=== PATIENT | male | born 1955 | race Caucasian/White ===

== ENCOUNTER 2016-10-04 07:02 | Observation (INO) | payer OTHER ==
--- NOTE | 2016-10-04 07:49 | ERPHSYRPT ---
- History of Present Illness Time Seen by Provider: 10/04/16 07:30 Source: patient, old records Exam Limitations: no limitations Patient Subjective Stated Complaint: sob Triage Nursing Assessment: pt states increased sob since midnight last night. c/ o dry nasal passages. denies cough, nasal drainage or fever. admitted recently for lung compromised (asthma, bronchitis, pneumonia) lungs clear. Timing/Duration: yesterday Activities at Onset: none Possible Cause: frequent episodes Modifying Factors: Improves With: activity Associated Symptoms: constant, edema, wheezing, leg swelling Allergies/Adverse Reactions: Tetracyclines Allergy (Intermediate, Verified 10/04/16 07:09) erythromycin base Allergy (Mild, Verified 10/04/16 07:09) Home Medications: Atenolol 50 mg [Tenormin 50 mg] 50 mg PO DAILY 10/30/15 [History] Atorvastatin Calcium [Lipitor] 40 mg PO HS 10/30/15 [History] Insulin Glargine,Hum.rec.anlog [Akbar Tobar] 150 unit SQ 1700 10/30/15 [ History] Isosorbide Mononitrate 60 mg [Imdur 60MG] 60 mg PO DAILY 10/30/15 [History] Warfarin Sodium 5 mg [Coumadin 5 MG] 11 mg PO EVENING MEAL 10/30/15 [ History] Amlodipine Besylate 10 mg [Norvasc 10 MG] 10 mg PO DAILY 09/04/16 [History] Fexofenadine HCl 180 mg PO DAILY 09/04/16 [History] Furosemide 40 mg [Lasix 40 MG] 40 mg PO DAILY 09/04/16 [History] Glyburide/Metformin HCl [Glyburide-Metformin 5-500 mg] 2 each PO BID 09/04/16 [ History] HydrALAzine HCL 25 MG TAB [Apresoline 25 MG TABLET] 25 mg PO DAILY [History] Potassium Chloride 10 Meq Tab* [Klor Con 10 MEQ] 10 meq PO DAILY 09/04/16 [ History] Ramipril [Altace] 20 mg PO DAILY 09/04/16 [History] Multivit-Min/FA/Lycopene/Lut [Centrum Silver Ultra Men's Tab] 1 each PO DAILY [History] Omeprazole 20 MG [Prilosec 20 mg] 20 mg PO DAILY 10/04/16 [History] Hx Tetanus, Diphtheria Vaccination/Date Given: Yes Hx Influenza Vaccination/Date Given: Yes Hx Pneumococcal Vaccination/Date Given: Yes Immunizations Up to Date: Yes - Review of Systems Constitutional: Weakness Eyes: No Symptoms Ears, Nose, & Throat: No Symptoms Respiratory: Dyspnea, Dyspnea on Exertion (JONES), Wheezing Cardiac: No Symptoms Abdominal/Gastrointestinal: No Symptoms Musculoskeletal: No Symptoms Skin: No Symptoms Neurological: No Symptoms Psychological: No Symptoms Endocrine: No Symptoms Hematologic/Lymphatic: No Symptoms Immunological/Allergic: No Symptoms - Past Medical History Pertinent Past Medical History: Yes Neurological History: Peripheral Neuropathy ENT History: Cataracts Cardiac History: Congestive Heart Failure, Hypertension Respiratory History: Bronchitis, CHF, Pneumonia, Pulmonary Embolism Endocrine Medical History: No Pertinent History, Diabetes Type II Musculoskeletal History: Arthritis GI Medical History: Other History: No Pertinent History Psycho-Social History: No Pertinent History Male Reproductive Disorders: No Pertinent History Other Medical History: reflux - Past Surgical History Past Surgical History: Yes Neuro Surgical History: No Pertinent History Cardiac: Cardiac Catheterization Respiratory: No Pertinent History Gastrointestinal: No Pertinent History Musculoskeletal: No Pertinent History Male Surgical History: No Pertinent History Other Surgical History: DENTAL - Social History Smoking Status: Former smoker How long have you smoked: 1 year Exposure to second hand smoke: No Drug Use: none Patient Lives Alone: Yes Significant Family History: heart disease, hypertension, kidney/renal disease - Nursing Vital Signs Nursing Vital Signs: Initial Vital Signs Temperature 98.5 F Temperature Source Oral Pulse Rate 91 Respiratory Rate 20 Blood Pressure 151/76 Pain Intensity 0 - Physical Exam General Appearance: moderate distress Eye Exam: PERRL/EOMI, eyes nml inspection Ears, Nose, Throat Exam: hearing grossly normal, normal ENT inspection Neck Exam: normal inspection Respiratory Exam: accessory muscle use, wheezing (dry crackles posterior miranda) Cardiovascular/Chest Exam: normal heart sounds, regular rate/rhythm, edema (4+ pretibial pitting to thighs) Abdominal/Gastrointestinal Exam: soft, normal bowel sounds Neurologic Exam: alert, oriented x 3, cooperative, normal mood/affect Skin Exam: normal color, warm, dry Lymphatic Exam: adenopathy SpO2 Interpretation: hypoxic, ABG ordered, O2 applied SpO2: 93 Oxygen Delivery: Room Air - Course Nursing assessment & vital signs reviewed: Yes EKG Interpreted by Me: RATE (97), Sinus Rhythm, NORMAL AXIS, NORMAL INTERVALS, NORMAL QRS, Non-specific ST Changes (unchanged from ECG of 09.04.2016) - Radiology Exams Chest X-ray Interpretation: Interpreted by me, Other (perihilar prominence C/W bronchitis. Prior RML inf cleared since 09.04.2016) Ordered Tests: Active Orders 24 hr Category Date Time Status EKG-ER Only STAT Care 10/04/16 07:20 Active Oxygen-ED Only NASAL CANNULA 2 lpm Care 10/04/16 07:20 Active Pulse Oximetry (ED) STAT Care 10/04/16 07:20 Active CHEST 2 VIEWS (PA AND LAT) Stat Exams 10/04/16 07:18 Taken ARTERIAL BLOOD GASES Urgent Lab 10/04/16 07:56 Completed CBC W DIFF Stat Lab 10/04/16 07:45 Completed CMP Stat Lab 10/04/16 07:45 Completed NT PRO BNP Stat Lab 10/04/16 07:45 Completed PROTIME WITH INR Stat Lab 10/04/16 07:45 Completed Respiratory Nebulizer STAT RT 10/04/16 07:58 Completed Medication Summary Discontinued Medications Generic Name Dose Route Start Last Admin Trade Name Freq PRN Reason Stop Dose Admin Albuterol/Ipratropium 3 ml 10/04/16 07:56 10/04/16 08:10 Duoneb 0.5-3 Mg/3 Ml Neb IH 10/04/16 07:57 3 ml STAT ONE Administration Albuterol/Ipratropium Confirm 10/04/16 08:00 Duoneb 0.5-3 Mg/3 Ml Neb Administered 10/04/16 08:01 Dose 3 ml IH .STK-MED ONE Furosemide 80 mg 10/04/16 08:15 10/04/16 08:33 Lasix 40 Mg/4 Ml IV 10/04/16 08:16 80 mg STAT ONE Administration Furosemide Confirm 10/04/16 08:19 Lasix 100 Mg/10 Ml Administered 10/04/16 08:20 Dose 100 mg .ROUTE .STK-MED ONE Methylprednisolone Sodium Succinate 125 mg 10/04/16 08:40 10/04/16 08:47 Solu-Medrol 125 Mg IV 10/04/16 08:41 125 mg STAT ONE Administration Methylprednisolone Sodium Succinate Confirm 10/04/16 08:47 Solu-Medrol 125 Mg Administered 10/04/16 08:48 Dose 125 mg .ROUTE .STK-MED ONE Lab/Rad Data: Laboratory Result Diagrams 10/04/16 07:45 10/04/16 07:45 Laboratory Results 10/04/16 10/04/16 10/04/16 Range/Units 07:56 07:45 07:45 WBC (4.0-10.5) K/mm3 RBC (4.1-5.6) M/mm3 Hgb (12.5-18.0) gm/dl Hct (42-50) % MCV (78-100) fl MCH (26-32) pg MCHC (32-36) g/dl RDW (11.5-14.0) % Plt Count (150-450) K/mm3 MPV (6-9.5) fl Gran % (36.0-66.0) % Lymphocytes % (24.0-44.0) % Monocytes % (0.0-12.0) % Eosinophils % (0.00-5.0) % Basophils % (0.0-0.4) % Basophils # (0-0.4) INR 2.35 (0.8-3.0) Puncture Site RIGHT BRACHIAL pCO2 42 (35-45) mmHg pO2 90 (75-100) mmHg Base Excess 1.0 (-2.0-2.0) O2 Saturation 96.3 (94-100) g/dF ABG pH 7.40 (7.35-7.45) ABG HCO3 26.0 (22-28) ABG O2 Sat (Measured) 98.0 (95-100) % Sim Test NOT APPLICABLE A-a Gradient 57 a/A Ratio 0.61 Hemoglobin 9.0 Carboxyhemoglobin 1.3 (0.0-6.9) % THgb Methemoglobin 0.4 L (1.4-1.5) % Temperature 37.0 C POC O2 Flow Rate 28 % Sodium 145 (136-145) mEq/L Potassium 5.3 H 5.4 H (3.5-5.1) mEq/L Chloride 112 H (98-107) mEq/L Carbon Dioxide 26.8 (21-32) mEq/L Anion Gap 11.5 (5-15) MEQ/L BUN 36 H (9-20) mg/dL Creatinine 2.36 H (0.55-1.30) mg/dl Estimated GFR 30 ML/MIN Glucose 163 H (70-110) MG/DL Calcium 8.0 L (8.5-10.1) mg/dL Total Bilirubin 0.2 (0.2-1.0) mg/dL AST 25 (15-37) U/L ALT 20 (12-78) U/L Alkaline Phosphatase 55 (46-116) U/L NT-Pro-B Natriuret Pep 1288 H (0-125) pg/ml Serum Total Protein 5.6 L (6.4-8.2) gm/dL Albumin 2.5 L (3.4-5.0) g/dL 10/04/16 Range/Units 07:45 WBC 7.4 (4.0-10.5) K/mm3 RBC 3.19 L (4.1-5.6) M/mm3 Hgb 9.2 L (12.5-18.0) gm/dl Hct 28.9 L (42-50) % MCV 90.6 (78-100) fl MCH 28.8 (26-32) pg MCHC 31.8 L (32-36) g/dl RDW 13.8 (11.5-14.0) % Plt Count 210 (150-450) K/mm3 MPV 11.2 H (6-9.5) fl Gran % 72.3 H (36.0-66.0) % Lymphocytes % 13.1 L (24.0-44.0) % Monocytes % 10.8 (0.0-12.0) % Eosinophils % 3.7 (0.00-5.0) % Basophils % 0.1 (0.0-0.4) % Basophils # 0.01 (0-0.4) INR (0.8-3.0) Puncture Site pCO2 (35-45) mmHg pO2 (75-100) mmHg Base Excess (-2.0-2.0) O2 Saturation (94-100) g/dF ABG pH (7.35-7.45) ABG HCO3 (22-28) ABG O2 Sat (Measured) (95-100) % Sim Test A-a Gradient a/A Ratio Hemoglobin Carboxyhemoglobin (0.0-6.9) % THgb Methemoglobin (1.4-1.5) % Temperature C POC O2 Flow Rate % Sodium (136-145) mEq/L Potassium (3.5-5.1) mEq/L Chloride (98-107) mEq/L Carbon Dioxide (21-32) mEq/L Anion Gap (5-15) MEQ/L BUN (9-20) mg/dL Creatinine (0.55-1.30) mg/dl Estimated GFR ML/MIN Glucose (70-110) MG/DL Calcium (8.5-10.1) mg/dL Total Bilirubin (0.2-1.0) mg/dL AST (15-37) U/L ALT (12-78) U/L Alkaline Phosphatase (46-116) U/L NT-Pro-B Natriuret Pep (0-125) pg/ml Serum Total Protein (6.4-8.2) gm/dL Albumin (3.4-5.0) g/dL - Progress Progress: improved Air Movement: good Blood Culture(s) Obtained: No Antibiotics given: No Discussed with : Nadya Will see patient in: hospital (observation) Counseled pt/family regarding: lab results, diagnosis, rad results - Departure Time of Disposition: 09:00 Departure Disposition: Observation Clinical Impression: Bronchitis CHF (congestive heart failure) Qualifiers: Congestive heart failure type: unspecified congestive heart failure type Congestive heart failure chronicity: acute on chronic Qualified Code(s): I50.9 - Heart failure, unspecified Condition: Stable Critical Care Time: Yes Critical Care Time(excluding separately billable procedures): 30-74 minutes Referrals: MARSHALL RODRIGUES [Primary Care Provider] - Instructions: Heart Failure
[2016-10-04 07:55] LABS: BASOPHIL % 0.1 % (0.0-0.4); Eosinophil % 3.7 % (0.00-5.0); Granulocytes % 72.3 % (36.0-66.0); Lymphocytes % 13.1 % (24.0-44.0); Mean Cell Volume 90.6 fl (78-100); Mean Corpuscular Hemoglobin 28.8 pg (26-32); Mean Platelet Volume 11.2 fl (6-9.5); Monocytes % 10.8 % (0.0-12.0); Platelet Count 210 K/mm3 (150-450); Red Blood Count 3.19 M/mm3 (4.1-5.6); Red Cell Distribution Width 13.8 % (11.5-14.0); White Blood Count 7.4 K/mm3 (4.0-10.5)
[2016-10-04] MEDS ORDERED: DUONEB 0.5-3 MG/3 ml Neb IH ONE ×2 (07:56→08:00)
[2016-10-04 08:06] LABS: INR 2.35 (0.8-3.0); PROTIME 25.7 SECONDS (8.83-12.87)
[2016-10-04] MEDS ORDERED: Lasix 40 MG/4 ML IV ONE (08:15)
[2016-10-04 08:16] LABS: A-aADO2 57; ARTERIAL BLOOD GAS FIO2 28 %; ARTERIAL BLOOD GAS PO2 90 mmHg (75-100)
[2016-10-04] MEDS ORDERED: LASIX ONE (08:19)
[2016-10-04 08:21] LABS: ALBUMIN 2.5 g/dL (3.4-5.0); ANION GAP 11.5 MEQ/L (5-15); BILIRUBIN,TOTAL 0.2 mg/dL (0.2-1.0); Carbon Dioxide 26.8 mEq/L (21-32); Potassium 5.4 mEq/L (3.5-5.1); Total Protein 5.6 gm/dL (6.4-8.2)
[2016-10-04] MEDS ORDERED: solu-MEDROL 125 MG IV ONE (08:40)
[2016-10-04] MEDS ORDERED: solu-MEDROL 125 MG ONE (08:47)
[2016-10-04 09:24] LABS: Collection Type VOID; Ph 5.5 (5-6)
[2016-10-04 09:25] LABS: ADD URINE CULTURE? NO (NO); Bacteria RARE /HPF (NEGATIVE); COMPLETE URINE MICROSCOPIC? YES; Epithelial Cells RARE /HPF (FEW); WBC 0-2 /HPF (0-5)
--- NOTE | 2016-10-04 09:39 | XRAY ---
Indication: Short of breath. Comparison: September 04, 2016 PA/lateral chest again demonstrates chronic lung markings. No focal infiltrate, consolidation, or large effusion. Heart is not enlarged. Vascularity normal. Bony thorax intact. Impression: Nonacute chest.
[2016-10-04] MEDS ORDERED: Zofran 4 MG/2 ML VIAL IV PRN (09:56)
[2016-10-04] MEDS ORDERED: TYLENOL 325 MG PO PRN (09:56)
[2016-10-04] MEDS ORDERED: NovoLOG Insulin SQ PRN (09:56)
[2016-10-04] MEDS ORDERED: MORPHINE SULFATE 2 MG INJ IV PRN (09:56)
[2016-10-04] MEDS ORDERED: PROTONIX 40 MG IV IV SCH (10:00)
[2016-10-04] MEDS ORDERED: DUONEB 0.5-3 MG/3 ml Neb IH SCH (11:00)
[2016-10-04] MEDS: Glucophage 500 MG PO SCH ×2 (12:22→16:11)
[2016-10-04] MEDS: CLARITIN 10 MG PO SCH (12:22)
[2016-10-04] MEDS: Apresoline 25 MG TABLET PO SCH ×3 (12:22→23:06)
[2016-10-04] MEDS: NORVASC 5 MG PO SCH (12:23)
[2016-10-04] MEDS: Imdur 60MG PO SCH (12:23)
[2016-10-04] MEDS: Protonix 40MG Tablet PO SCH (12:23)
[2016-10-04] MEDS: Klor Con 10 MEQ PO SCH (12:23)
[2016-10-04] MEDS: Micronase 5 MG PO SCH ×2 (12:23→16:11)
[2016-10-04] MEDS: TENORMIN 50 MG PO SCH (12:24)
[2016-10-04] MEDS: THERAGRAN MULTIVITAMIN PO SCH (12:25)
[2016-10-04] MEDS: Lasix 40 MG/4 ML IV SCH ×2 (12:31→16:11)
[2016-10-04] MEDS: PROVENTIL 2.5 MG/3 ML NEB IH SCH ×2 (14:15→18:58)
[2016-10-04] MEDS ORDERED: PROVENTIL 2.5 MG/3 ML NEB IH ONE (14:22)
[2016-10-04] MEDS ORDERED: Lantus Insulin SQ SCH (17:00)
[2016-10-04] MEDS ORDERED: INSULIN GLARGINE HUM REC ANLOG 150 UNIT SQ SCH (17:00)
[2016-10-04] MEDS ORDERED: Coumadin 1 MG PO SCH (18:00)
[2016-10-04] MEDS ORDERED: Coumadin 10 MG PO SCH (18:00)
[2016-10-04] MEDS ORDERED: Lasix 20 MG/2 ML IV SCH (20:30)
[2016-10-04] MEDS ORDERED: LIPITOR 40MG PO SCH (22:00)
[2016-10-04] MEDS ORDERED: ZOCOR 20MG PO SCH (22:00)
[2016-10-04] MEDS ORDERED: GLYBURIDE PO SCH (22:00)
[2016-10-04] MEDS ORDERED: METFORMIN HCL PO SCH (22:00)
[2016-10-05] MEDS: PROVENTIL 2.5 MG/3 ML NEB IH SCH ×3 (01:19→13:00)
[2016-10-05 06:20] LABS: ANION GAP 10.3 MEQ/L (5-15); Carbon Dioxide 28.3 mEq/L (21-32); Potassium 5.7 mEq/L (3.5-5.1)
[2016-10-05] MEDS ORDERED: Spiriva 18 Mcg/Cap Inhaler IH ONE (06:48)
[2016-10-05] MEDS: Micronase 5 MG PO SCH (07:57)
[2016-10-05] MEDS: Glucophage 500 MG PO SCH (07:57)
--- NOTE | 2016-10-05 08:23 | PCM.DCORD ---
- Discharge Discharge Date: 10/05/16 Disposition: Home, Self-Care Condition: Stable Medications: Home Medications Atenolol 50 mg [Tenormin 50 mg] 50 mg PO DAILY 10/30/15 [Last Taken ] Atorvastatin Calcium [Lipitor] 40 mg PO HS 10/30/15 [Last Taken 10/03/16] Insulin Glargine,Hum.rec.anlog [Alsean Verdinbarrera] 150 unit SQ 1700 10/30/15 [ Last Taken 10/03/16] Isosorbide Mononitrate 60 mg [Imdur 60MG] 60 mg PO DAILY 10/30/15 [Last Taken 10/04/16] Warfarin Sodium 5 mg [Coumadin 5 MG] 11 mg PO EVENING MEAL 10/30/15 [Last Taken 10/03/16] Amlodipine Besylate 10 mg [Norvasc 10 MG] 10 mg PO DAILY 09/04/16 [Last Taken ] Fexofenadine HCl 180 mg PO DAILY 09/04/16 [Last Taken 10/04/16] Furosemide 40 mg [Lasix 40 MG] 40 mg PO DAILY 09/04/16 [Last Taken ] Glyburide/Metformin HCl [Glyburide-Metformin 5-500 mg] 2 each PO BID 09/04/16 [ Last Taken 10/04/16] HydrALAzine HCL 25 MG TAB [Apresoline 25 MG TABLET] 25 mg PO TID 09/04/16 [Last Taken 10/04/16] Potassium Chloride 10 Meq Tab* [Klor Con 10 MEQ] 10 meq PO DAILY 09/04/16 [ Last Taken 10/04/16] Ramipril [Altace] 20 mg PO DAILY 09/04/16 [Last Taken 10/04/16] Multivit-Min/FA/Lycopene/Lut [Centrum Silver Ultra Men's Tab] 1 each PO DAILY [Last Taken 10/04/16] Omeprazole 20 MG [Prilosec 20 mg] 20 mg PO DAILY 10/04/16 [Last Taken 10/04/16] Tiotropium Wells Inhaler [Spiriva 18 Mcg/Cap Inhaler] 1 inh PO DAILY 10/20 [Last Taken Unknown] Active Inpatient Medications Acetaminophen (Tylenol 325 Mg) 650 mg PO Q4H PRN PRN PRN Reason: PAIN AND/OR FEVER Stop: 11/03/16 09:55 Albuterol Sulfate (Proventil 2.5 Mg/3 Ml Neb) 2.5 mg IH Q6HRT [facility] Stop: 11/03/16 18:59 Last Admin: 10/05/16 06:46 Dose: 2.5 mg Amlodipine Besylate (Norvasc 5 Mg) 10 mg PO DAILY [facility] Stop: 11/03/16 10:59 Last Admin: 10/04/16 12:23 Dose: Not Given Atenolol (Tenormin 50 Mg) 50 mg PO DAILY [facility] Stop: 11/03/16 10:59 Last Admin: 10/04/16 12:24 Dose: Not Given Furosemide (Lasix 40 Mg/4 Ml) 40 mg IV BID DIURETIC [facility] Stop: 11/03/16 09:59 Last Admin: 10/04/16 16:11 Dose: 40 mg Glyburide (Micronase 5 Mg) 10 mg PO BIDWM [facility] Stop: 11/03/16 10:59 Last Admin: 10/05/16 07:57 Dose: 10 mg Hydralazine HCl (Apresoline 25 Mg Tablet) 25 mg PO TID [facility] Stop: 11/03/16 10:59 Last Admin: 10/04/16 23:06 Dose: 25 mg Insulin Aspart (Novolog Insulin) 0 unit SQ UD PRN PRN Reason: HYPERGLYCEMIA Stop: 11/03/16 09:55 Last Admin: 10/04/16 23:06 Dose: 7 unit Insulin Glargine (Lantus Insulin) 120 unit SQ 1700 [facility] Stop: 11/03/16 16:59 Last Admin: 10/04/16 16:23 Dose: 120 unit Isosorbide Mononitrate (Imdur 60mg) 60 mg PO DAILY [facility] Stop: 11/03/16 10:59 Last Admin: 10/04/16 12:23 Dose: Not Given Loratadine (Claritin 10 Mg) 10 mg PO DAILY [facility] Stop: 11/03/16 10:59 Last Admin: 10/04/16 12:22 Dose: Not Given Metformin HCl (Glucophage 500 Mg) 1,000 mg PO BIDWM [facility] Stop: 11/03/16 10:59 Last Admin: 10/05/16 07:57 Dose: 1,000 mg Morphine Sulfate (Morphine Sulfate 2 Mg Inj) 2 mg IV Q4H PRN PRN PRN Reason: PAIN Stop: 10/09/16 09:55 Multivitamins (Theragran Multivitamin) 1 tab PO DAILY [facility] Stop: 11/03/16 10:59 Last Admin: 10/04/16 12:25 Dose: 1 tab Ondansetron HCl (Zofran 4 Mg/2 Ml Vial) 4 mg IV Q6H PRN PRN PRN Reason: NAUSEA/VOMITING Stop: 11/03/16 09:55 Pantoprazole Sodium (Protonix 40mg Tablet) 40 mg PO DAILY [facility] Stop: 11/03/16 10:59 Last Admin: 10/04/16 12:23 Dose: Not Given Potassium Chloride (Klor Con 10 Meq) 10 meq PO DAILY [facility] Stop: 11/03/16 10:59 Last Admin: 10/04/16 12:23 Dose: Not Given Simvastatin (Zocor 20mg) 40 mg PO HS [facility] Stop: 11/03/16 21:59 Last Admin: 10/04/16 23:06 Dose: 40 mg Tiotropium Wells (Spiriva 18 Mcg/Cap Inhaler) 1 ea IH DAILY [facility] Stop: 11/04/16 09:59 Last Admin: 10/05/16 06:51 Dose: 1 ea Warfarin Sodium (Coumadin 10 Mg) 10 mg PO COU [facility] Stop: 11/03/16 17:59 Last Admin: 10/04/16 16:22 Dose: 10 mg Warfarin Sodium (Coumadin 1 Mg) 1 mg PO COU [facility] Stop: 11/03/16 17:59 Last Admin: 10/04/16 16:23 Dose: 1 mg Instructions: Heart Failure Additional Instructions: hold potassium until Dr. Covington restarts it Follow up with: MARSHALL COVINGTON [Primary Care Provider] - Forms: Patient Portal Information
--- NOTE | 2016-10-05 08:38 | HP ---
CHIEF COMPLAINT: Shortness of breath. HISTORY OF PRESENT ILLNESS: The patient is a 61 y/o WM patient who reports that he had been up in the evening last night and overnight due to dropping of his blood sugars down to 53 and he noticed that he was increasingly short of breath. He presented himself to the Emergency Room and was subsequently admitted to the hospital with the diagnosis of congestive heart failure. PAST MEDICAL HISTORY: The patient's past medical history is significant for congestive heart failure, hypertension, bronchitis, pneumonia, pulmonary embolism, type 2 diabetes mellitus. HOME MEDICATIONS: Amlodipine 10 mg a day, atenolol 50 mg a day, Lipitor 40 mg a day, fexofenadine 180 mg a day, Lasix 40 mg a day, glyburide/metformin 5/500 bid 2 tablets at a time, hydralazine 25 mg tid, insulin, isosorbide 60 mg daily, omeprazole 20 mg a day, potassium 10 mEq a day, warfarin 5 mg a day. ALLERGIES: THE PATIENT REPORTS ALLERGIES TO ERYTHROMYCIN AND TETRACYCLINE. PHYSICAL EXAMINATION: Reveals an obese WM patient currently in no obvious distress. He has temperature of 98.5 oral, pulse 81, respiratory rate 20, BP 151/76, O2 saturation 93% on room air. HEENT: Normocephalic and atraumatic. Pupils equal, round, and reactive to light. Extraocular movements intact. Oropharynx was pink and moist. NECK: Supple without lymphadenopathy, thyromegaly, or JVD. CHEST: Clear to auscultation with good air movement bilaterally. HEART: Regular rate and rhythm without murmurs, rubs, or gallops. ABDOMEN: Soft, nontender, nondistended without hepatosplenomegaly or masses. EXTREMITIES: Without cyanosis, clubbing, or edema. NEURO: The patient is alert and oriented X 3. LABORATORY STUDIES: Showed a UA with greater than 300 on the protein, but was otherwise normal. He had an arterial blood gas with pH of 7.40, PCO2 42, PO2 90. He had a nonfasting sugar at 163, BUN 36, creatinine 2.36. Potassium was slightly high at 5.4. Liver enzymes were normal. NT Pro BNP was elevated at 1288. INR was therapeutic at 2.35. WBC was 7400, Hgb 9.2, and platelet count is 210,000. ASSESSMENT: 1. THE PATIENT WITH CONGESTIVE HEART FAILURE. He has been given IV Lasix in the Emergency Room. He is improving at the present time. We will check serial troponins and give him another dose of IV Lasix this evening with the hope of sending him home tomorrow morning. 2. CHRONIC RENAL INSUFFICIENCY. We will monitor his creatinine closely. 3. ANEMIA. Hgb 9.2. Will heme-test his stools.
[2016-10-05] MEDS: Apresoline 25 MG TABLET PO SCH (09:15)
[2016-10-05] MEDS: Protonix 40MG Tablet PO SCH (09:16)
[2016-10-05] MEDS: CLARITIN 10 MG PO SCH (09:16)
[2016-10-05] MEDS: Klor Con 10 MEQ PO SCH (09:16)
[2016-10-05] MEDS: Imdur 60MG PO SCH (09:16)
[2016-10-05] MEDS: TENORMIN 50 MG PO SCH (09:17)
[2016-10-05] MEDS: NORVASC 5 MG PO SCH (09:17)
[2016-10-05] MEDS: THERAGRAN MULTIVITAMIN PO SCH (09:17)
[2016-10-05] MEDS: Lasix 40 MG/4 ML IV SCH (09:17)
[2016-10-05] MEDS ORDERED: NON-FORMULARY ITEM (Omeprazole 20 Mg [Prilosec 20 Mg] 20 MG) PO SCH (10:00)
[2016-10-05] MEDS ORDERED: NON-FORMULARY ITEM (Amlodipine Besylate 10 Mg [Norvasc 10 Mg] 10 MG) PO SCH (10:00)
[2016-10-05] MEDS ORDERED: [UNRECOGNIZED DRUG - OTHER] PO SCH (10:00)
[2016-10-05] MEDS ORDERED: NON-FORMULARY ITEM (Fexofenadine Hcl [Fexofenadine Hcl] 180 MG) PO SCH (10:00)
[2016-10-05] MEDS ORDERED: Spiriva 18 Mcg/Cap Inhaler IH SCH (10:00)
[2016-10-05 11:19] VITALS: BP 167/75
[2016-10-05 13:02] VITALS: PULSE 85; O2SAT 96
== END 2016-10-05 13:15 | disposition home or self-care (01) ==
LOC: ED 07:02 → MED SURG 09:54
PROVIDERS: ADMIT Family Medicine; ATTEND Family Medicine
DX: I50.9 Heart failure, unspecified (principal); I12.9 Hypertensive chronic kidney disease with stage 1 through stage 4 chronic kidney disease, or unspecified chronic kidney disease; N18.9 Chronic kidney disease, unspecified; D64.9 Anemia, unspecified; E11.9 Type 2 diabetes mellitus without complications; Z86.711 Personal history of pulmonary embolism; Z79.01 Long term (current) use of anticoagulants; Z79.899 Other long term (current) drug therapy
CPT/HCPCS: 36415; 36600; 71020; 80048; 80053; 80061; 81000; 82375; 82803; 82962; 83036; 83721; 83880; 84484; 85025; 85610; 93005; 93268; 94640; 94760; 96374; 99285; G0378; J1940; J2930

== ENCOUNTER 2016-11-04 17:56 | Emergency (ER) | payer OTHER ==
[2016-11-04] MEDS ORDERED: D50W 50 ml Abboject IV ONE ×2 (18:54→19:24)
[2016-11-04] MEDS ORDERED: NovoLIN R IV ONE (18:59)
[2016-11-04] MEDS ORDERED: Sodium Chloride 0.9% 1000 ML 1,000 ML IV SCH (19:00)
[2016-11-04] MEDS ORDERED: Sodium Chloride 0.9% 100 ML IVPB 100 ML IV ONE (19:03)
[2016-11-04] MEDS ORDERED: CALCIUM CHLORIDE 10% 1000 MG ONE (19:03)
[2016-11-04] MEDS ORDERED: PROTONIX 40 MG IV IV ONE ×2 (19:03→19:32)
[2016-11-04 19:05] LABS: BASOPHIL % 0.2 % (0.0-0.4); Eosinophil % 3.8 % (0.00-5.0); Granulocytes % 59.6 % (36.0-66.0); Lymphocytes % 21.8 % (24.0-44.0); Mean Cell Volume 85.7 fl (78-100); Mean Platelet Volume 11.7 fl (6-9.5); Monocytes % 14.6 % (0.0-12.0); Platelet Count 252 K/mm3 (150-450); Red Blood Count 3.98 M/mm3 (4.1-5.6); Red Cell Distribution Width 12.8 % (11.5-14.0); White Blood Count 6.3 K/mm3 (4.0-10.5)
--- NOTE | 2016-11-04 19:12 | ERPHSYRPT ---
- History of Present Illness Time Seen by Provider: 11/04/16 18:00 Source: patient Exam Limitations: clinical condition Patient Subjective Stated Complaint: PT HAD LABS TODAY AND HIS POTASSIUM WAS 6.4 HE WAS ADVISED TO COME TO THE ER Triage Nursing Assessment: ALERT X 3, RESPIRATIONS EVEN, NONLABORED, SKIN WARM/ PINK/DRY AND INTACT. Physician History: PATIENT WITH A HISTORY OF CHRONIC RENAL FAILURE, TYPE 2 DIABETES, CORONARY ARTERY DISEASE,REFERRED TO EMERGENCY FOR EVALUATION OF ELEVATED SERUM POTASSIUM. PATIENT DENIES DYSPNEA, CHEST PAIN, EMESIS OR DIARRHEA. Timing/Duration: today Modifying Factors: Improves With: nothing Allergies/Adverse Reactions: Tetracyclines Allergy (Intermediate, Verified 11/04/16 18:26) erythromycin base Allergy (Mild, Verified 11/04/16 18:26) Home Medications: Atenolol 50 mg [Tenormin 50 mg] 50 mg PO DAILY 10/30/15 [History] Atorvastatin Calcium [Lipitor] 40 mg PO HS 10/30/15 [History] Insulin Glargine,Hum.rec.anlog [Akbar Tobar] 150 unit SQ 1700 10/30/15 [ History] Isosorbide Mononitrate 60 mg [Imdur 60MG] 60 mg PO DAILY 10/30/15 [History] Warfarin Sodium 5 mg [Coumadin 5 MG] 11 mg PO EVENING MEAL 10/30/15 [ History] Amlodipine Besylate 10 mg [Norvasc 10 MG] 10 mg PO DAILY 09/04/16 [History] Fexofenadine HCl 180 mg PO DAILY 09/04/16 [History] Furosemide 40 mg [Lasix 40 MG] 40 mg PO DAILY 09/04/16 [History] HydrALAzine HCL 25 MG TAB [Apresoline 25 MG TABLET] 25 mg PO TID 09/04/16 [History] Ramipril [Altace] 20 mg PO DAILY 09/04/16 [History] Multivit-Min/FA/Lycopene/Lut [Centrum Silver Ultra Men's Tab] 1 each PO DAILY [History] Omeprazole 20 MG [Prilosec 20 mg] 20 mg PO DAILY 10/04/16 [History] Tiotropium [place] Inhaler [Spiriva 18 Mcg/Cap Inhaler] 1 inh PO DAILY 10/20 [History] Cholecalciferol (Vitamin D3) [Vitamin D3] 5,000 unit PO UD 11/04/16 [History] Glipizide 5 mg [Glucotrol 5 MG] 5 mg PO DAILY 11/04/16 [History] Hx Tetanus, Diphtheria Vaccination/Date Given: Yes Hx Influenza Vaccination/Date Given: Yes Hx Pneumococcal Vaccination/Date Given: Yes Immunizations Up to Date: Yes - Past Medical History Pertinent Past Medical History: Yes Neurological History: No Pertinent History ENT History: No Pertinent History Cardiac History: Congestive Heart Failure, Hypertension Respiratory History: Asthma, Bronchitis, CHF, Pneumonia, Pulmonary Embolism Endocrine Medical History: No Pertinent History, Diabetes Type II Musculoskeletal History: Arthritis GI Medical History: Other History: No Pertinent History Psycho-Social History: No Pertinent History Male Reproductive Disorders: No Pertinent History Other Medical History: KIDNEY FUNCTION 23% (11/04/2016) - Past Surgical History Past Surgical History: Yes Neuro Surgical History: No Pertinent History Cardiac: Cardiac Catheterization Respiratory: No Pertinent History Gastrointestinal: No Pertinent History Musculoskeletal: No Pertinent History Male Surgical History: No Pertinent History Other Surgical History: DENTAL - Social History Smoking Status: Former smoker How long have you smoked: 1 year Exposure to second hand smoke: No Drug Use: none Patient Lives Alone: Yes Significant Family History: heart disease, hypertension, kidney/renal disease - Nursing Vital Signs Nursing Vital Signs: Initial Vital Signs Temperature 98.8 F Temperature Source Oral Pulse Rate 90 Respiratory Rate 14 Blood Pressure [Left Arm] 147/77 Pain Intensity 0 - Physical Exam SpO2: 97 Oxygen Delivery: Nasal Cannula Ordered Tests: Active Orders 24 hr Category Date Time Status ACCUCHECK [Accucheck] STAT Care 11/04/16 20:23 Active Biomedical Equipment Tech STAT Care 11/04/16 18:52 Active EKG-ER Only STAT Care 11/04/16 18:52 Active IV Insertion STAT Care 11/04/16 18:52 Active Oxygen-ED Only NASAL CANNULA 2 lpm Care 11/04/16 18:52 Active CHEST 1 VIEW (PORTABLE) Stat Exams 11/04/16 18:53 Taken CBC W DIFF Stat Lab 11/04/16 18:57 Completed CMP Stat Lab 11/04/16 18:57 Completed PROTIME WITH INR Stat Lab 11/04/16 18:57 Completed TROPONIN Q3H Lab 11/04/16 19:00 Completed TROPONIN Q3H Lab 11/05/16 01:00 Ordered TROPONIN Q3H Lab 11/05/16 04:00 Ordered TROPONIN Q3H Lab 11/05/16 07:00 Ordered Medication Summary Generic Name Dose Route Start Last Admin Trade Name Clayton PRN Reason Stop Dose Admin Sodium Chloride 1,000 mls @ 20 mls/hr 11/04/16 19:00 11/04/16 19:26 Sodium Chloride 0.9% 1000 Ml IV 12/04/16 18:59 20 mls/hr .Q24H MERLE Administration Discontinued Medications Generic Name Dose Route Start Last Admin Trade Name Clayton PRN Reason Stop Dose Admin Calcium Chloride Confirm 11/04/16 19:03 Calcium Chloride 10% 1000 Mg Administered 11/04/16 19:04 Dose 1,000 mg .ROUTE .STK-MED ONE Dextrose 50 ml 11/04/16 18:54 11/04/16 19:26 D50w 50 Ml Abboject IV 11/04/16 18:55 50 ml STAT ONE Administration Dextrose Confirm 11/04/16 19:24 D50w 50 Ml Abboject Administered 11/04/16 19:25 Dose 50 ml IV .STK-MED ONE Sodium Chloride Confirm 11/04/16 19:03 Sodium Chloride 0.9% 100 Ml Ivpb Administered 11/04/16 19:04 Dose 100 mls @ ud IV .STK-MED ONE Sodium Chloride Confirm 11/04/16 19:23 Sodium Chloride 0.9% 1000 Ml Administered 11/04/16 19:24 Dose 1,000 mls @ ud .ROUTE .STK-MED ONE Insulin Human Regular 7 unit 11/04/16 18:59 11/04/16 19:26 Novolin R IV 11/04/16 19:00 7 unit STAT ONE Administration Insulin Human Regular Confirm 11/04/16 19:22 Novolin R Administered 11/04/16 19:23 Dose 7 unit .ROUTE .STK-MED ONE Pantoprazole Sodium 40 mg 11/04/16 19:03 11/04/16 19:33 Protonix 40 Mg Iv IV 11/04/16 19:04 Not Given STAT ONE Pantoprazole Sodium Confirm 11/04/16 19:32 Protonix 40 Mg Iv Administered 11/04/16 19:33 Dose 40 mg IV .STK-MED ONE Sodium Polystyrene Sulfonate 30 g 11/04/16 20:35 11/04/16 20:52 Kayexylate 15 Gm/60 Ml PO 11/04/16 20:36 30 g STAT ONE Administration Lab/Rad Data: Laboratory Result Diagrams 11/04/16 18:57 11/04/16 18:57 Laboratory Results 11/04/16 11/04/16 11/04/16 Range/Units 19:00 18:57 18:57 WBC (4.0-10.5) K/mm3 RBC (4.1-5.6) M/mm3 Hgb (12.5-18.0) gm/dl Hct (42-50) % MCV (78-100) fl MCH (26-32) pg MCHC (32-36) g/dl RDW (11.5-14.0) % Plt Count (150-450) K/mm3 MPV (6-9.5) fl Gran % (36.0-66.0) % Lymphocytes % (24.0-44.0) % Monocytes % (0.0-12.0) % Eosinophils % (0.00-5.0) % Basophils % (0.0-0.4) % Basophils # (0-0.4) INR 4.02 H (0.8-3.0) Sodium 137 (136-145) mEq/L Potassium 6.3 H* (3.5-5.1) mEq/L Chloride 105 (98-107) mEq/L Carbon Dioxide 22.8 (21-32) mEq/L Anion Gap 15.6 H (5-15) MEQ/L BUN 48 H (9-20) mg/dL Creatinine 3.77 H (0.55-1.30) mg/dl Estimated GFR 17 ML/MIN Glucose 103 (70-110) MG/DL Calcium 9.1 (8.5-10.1) mg/dL Total Bilirubin 0.3 (0.2-1.0) mg/dL AST 30 (15-37) U/L ALT 23 (12-78) U/L Alkaline Phosphatase 74 (46-116) U/L Troponin I < 0.017 (0.000-0.056) ng/ml Serum Total Protein 7.1 (6.4-8.2) gm/dL Albumin 3.3 L (3.4-5.0) g/dL 11/04/16 Range/Units 18:57 WBC 6.3 (4.0-10.5) K/mm3 RBC 3.98 L (4.1-5.6) M/mm3 Hgb 11.1 L (12.5-18.0) gm/dl Hct 34.1 L (42-50) % MCV 85.7 (78-100) fl MCH 27.8 (26-32) pg MCHC 32.6 (32-36) g/dl RDW 12.8 (11.5-14.0) % Plt Count 252 (150-450) K/mm3 MPV 11.7 H (6-9.5) fl Gran % 59.6 (36.0-66.0) % Lymphocytes % 21.8 L (24.0-44.0) % Monocytes % 14.6 H (0.0-12.0) % Eosinophils % 3.8 (0.00-5.0) % Basophils % 0.2 (0.0-0.4) % Basophils # 0.01 (0-0.4) INR (0.8-3.0) Sodium (136-145) mEq/L Potassium (3.5-5.1) mEq/L Chloride (98-107) mEq/L Carbon Dioxide (21-32) mEq/L Anion Gap (5-15) MEQ/L BUN (9-20) mg/dL Creatinine (0.55-1.30) mg/dl Estimated GFR ML/MIN Glucose (70-110) MG/DL Calcium (8.5-10.1) mg/dL Total Bilirubin (0.2-1.0) mg/dL AST (15-37) U/L ALT (12-78) U/L Alkaline Phosphatase (46-116) U/L Troponin I (0.000-0.056) ng/ml Serum Total Protein (6.4-8.2) gm/dL Albumin (3.4-5.0) g/dL - Progress Progress Note: 11/04/16 20:37 PATIENT GIVEN IV NORMAL SALINE 10ML/HR, D50 1AMP IV, HUMULIN REGULAR INSULIN 7 UNITS IV, CALCIUM CHLORIDE 1GM IVPB OVER 1 HOUR, KAYEXYLATE 30GM ORALLY Discussed with DrRabia: Other (DR FLANAGAN ACCEPTS TRANSFER AT [facility] TO [facility]) - Departure Time of Disposition: 21:55 Departure Disposition: Transfer Clinical Impression: ACUTE HYPERKALEMIA, CHRONIC RENAL FAILURE Condition: Stable Critical Care Time: No Referrals: MARSHALL RODRIGUES [Primary Care Provider] -
[2016-11-04 19:14] LABS: Mean Corpuscular Hemoglobin 27.8 pg (26-32)
[2016-11-04 19:22] LABS: INR 4.02 (0.8-3.0); PROTIME 43.2 SECONDS (8.83-12.87)
[2016-11-04] MEDS ORDERED: NovoLIN R ONE (19:22)
[2016-11-04] MEDS ORDERED: Sodium Chloride 0.9% 1000 ML 1,000 ML ONE (19:23)
[2016-11-04 19:24] LABS: ALBUMIN 3.3 g/dL (3.4-5.0); ANION GAP 15.6 MEQ/L (5-15); BILIRUBIN,TOTAL 0.3 mg/dL (0.2-1.0); Carbon Dioxide 22.8 mEq/L (21-32); Total Protein 7.1 gm/dL (6.4-8.2)
[2016-11-04 19:28] LABS: Potassium 6.3 mEq/L (3.5-5.1)
[2016-11-04] MEDS ORDERED: Kayexylate 15 GM/60 ML PO ONE (20:35)
[2016-11-04 21:01] VITALS: BP 147/77; PULSE 90
[2016-11-04 22:18] VITALS: O2SAT 97
--- NOTE | 2016-11-05 09:08 | XRAY ---
Indication: Dyspnea. High potassium. Comparison: October 04, 2016 Portable chest remains clear. Heart and mediastinal structures within normal limits for AP portable technique. Bony thorax intact. No new/acute findings. Impression: Stable nonacute chest.
== END 2016-11-04 21:44 | disposition short-term general hospital (02) ==
LOC: ED 17:56
DX: E87.5 Hyperkalemia (principal); N18.9 Chronic kidney disease, unspecified; E11.9 Type 2 diabetes mellitus without complications; I10 Essential (primary) hypertension; I50.9 Heart failure, unspecified; I25.10 Atherosclerotic heart disease of native coronary artery without angina pectoris; Z79.899 Other long term (current) drug therapy; Z79.01 Long term (current) use of anticoagulants; Z79.84 Long term (current) use of oral hypoglycemic drugs
CPT/HCPCS: 36000; 36415; 71010; 80053; 82962; 84484; 85025; 85610; 93005; 93041; 96360; 96361; 96365; 96374; 96375; 99284

== ENCOUNTER 2016-12-19 04:11 | Emergency (ER) | payer OTHER ==
--- NOTE | 2016-12-19 04:30 | ERPHSYRPT ---
- History of Present Illness Time Seen by Provider: 12/19/16 04:19 Historian: patient, EMS (ASA and NTG given), intermediate records Physician History: CC: chest pain HX: 61 y/o patient of Dr Covington/Dewey/Maria R. He had recent CABG at [place]. Went to rehab at [facility] last evening. There was a delay in getting his pain medication. He had more and more chest pain and finally was given norco. Pain continued so he was sent here. Patient states if he had been able to have his pain medicaiton timely he would not have needed to come to ER. He is on warfarin for afib. Severity of Pain-Max: moderate Severity of Pain-Current: mild Prior Chest Pain/Cardiac Workup: recent hospitalization (CABG) Aspirin Treatment Today: no aspirin today (he is on warfarin) Allergies/Adverse Reactions: Tetracyclines Allergy (Intermediate, Verified 12/19/16 04:28) erythromycin base Allergy (Mild, Verified 12/19/16 04:28) Home Medications: Acetaminophen 325 mg [Tylenol 325 mg] 325 mg PO Q4H PRN PRN 12/19/16 [ History] Amiodarone HCl 200 mg [Cordarone 200 MG] 200 mg PO DAILY 12/19/16 [History ] Atenolol 50 mg [Tenormin 50 mg] 50 mg PO DAILY 12/19/16 [History] Atorvastatin Calcium 40 mg PO HS 12/19/16 [History] Calcitriol 0.25 mcg PO UD 12/19/16 [History] Clopidogrel Bisulfate 75 mg [PLAVIX 75 MG Tablet] 75 mg PO DAILY 12/19/16 [History] Docusate Sodium 100 mg [Colace 100 MG] 100 mg PO BID 12/19/16 [History] Famotidine 20 mg [Pepcid 20 MG] 20 mg PO DAILY 12/19/16 [History] Fexofenadine HCl 180 mg PO DAILY 12/19/16 [History] Glipizide 5 mg [Glucotrol 5 MG] 5 mg PO DAILY 12/19/16 [History] Gluc 2Kcl/Chondr/Jess Hy/Hy AC [Glucosamine & Chondroitin Cap] 1 each PO BID [History] Glucagon 1 mg [GlucaGen 1 MG] 1 mg IM UD 12/19/16 [History] Hydrocodone Bit/Acetaminophen [[place] 5/325Mg] 1 each PO Q4HPRN PRN 12/19/16 [ History] Insulin Glargine,Hum.rec.anlog [Toujeo Solostar] 130 unit SQ DAILY 12/19/16 [ History] Ipratropium [place] 0.5 mg [Atrovent 0.5MG NEBULE] 0.5 mg IH BID 12/19/16 [ History] Isosorbide Mononitrate [Isosorbide Mononitrate ER] 30 mg PO DAILY 12/19/16 [ History] Metoprolol Tartrate 50 mg [Lopressor 50 MG] 50 mg PO BID 12/19/16 [History ] Multivit-Min/FA/Lycopen/Lutein [Men 50 Plus Multivitamin Tab] 1 each PO DAILY [History] Omeprazole 20 mg PO DAILY 12/19/16 [History] Patiromer Calcium Sorbitex [Veltassa] 8.4 gm PO DAILY 12/19/16 [History] Sodium Bicarbonate 325 mg PO BID 12/19/16 [History] Torsemide 20 mg PO BID 12/19/16 [History] Warfarin Sodium 7.5 mg PO DAILY 12/19/16 [History] Hx Tetanus, Diphtheria Vaccination/Date Given: Yes Hx Influenza Vaccination/Date Given: Yes Hx Pneumococcal Vaccination/Date Given: Yes - Review of Systems Constitutional: No Fever, No Chills Eyes: No Symptoms Ears, Nose, & Throat: No Symptoms Respiratory: No Cough, No Dyspnea Cardiac: Chest Pain, Edema, No Syncope Abdominal/Gastrointestinal: No Abdominal Pain, No Nausea, No Vomiting, No Diarrhea Skin: No Rash Neurological: No Headache All Other Systems: Reviewed and Negative - Past Medical History Pertinent Past Medical History: Yes Neurological History: No Pertinent History ENT History: No Pertinent History Cardiac History: Congestive Heart Failure, Hypertension Respiratory History: Asthma, Bronchitis, CHF, Pneumonia, Pulmonary Embolism Endocrine Medical History: No Pertinent History, Diabetes Type II Musculoskeletal History: Arthritis GI Medical History: Other History: No Pertinent History Psycho-Social History: No Pertinent History Male Reproductive Disorders: No Pertinent History Other Medical History: KIDNEY FUNCTION 23% (11/04/2016) - Past Surgical History Past Surgical History: Yes Neuro Surgical History: No Pertinent History Cardiac: Cardiac Catheterization Respiratory: No Pertinent History Gastrointestinal: No Pertinent History Musculoskeletal: No Pertinent History Male Surgical History: No Pertinent History Other Surgical History: DENTAL - Social History Smoking Status: Former smoker How long have you smoked: 1 year Exposure to second hand smoke: No Drug Use: none Patient Lives Alone: Yes Significant Family History: heart disease, hypertension, kidney/renal disease - Physical Exam General Appearance: alert, obese Eye Exam: PERRL/EOMI Ears, Nose, Throat Exam: moist mucous membranes Neck Exam: normal inspection, supple Respiratory Exam: lungs clear, other (sternotomy incision intact), No respiratory distress Cardiovascular Exam: regular rate/rhythm Gastrointestinal/Abdomen Exam: soft, No tenderness, No distention Extremity Exam: pedal edema, No calf tenderness Neurologic Exam: alert, oriented x 3, cooperative, normal mood/affect, sensation nml, No motor deficits Skin Exam: warm, dry, No rash - Course Nursing assessment & vital signs reviewed: Yes EKG Interpreted by Me: RATE (103), Sinus Tach, NORMAL AXIS, Right Bundle Branch Block (new), Non-specific ST Changes - Radiology Exams cxr X-ray Interpretation: Reviewed by me, Negative (rotated, new sternotomy) Ordered Tests: Active Orders 24 hr Category Date Time Status Machine Feeder Raw Stock STAT Care 12/19/16 04:24 Active EKG-ER Only STAT Care 12/19/16 04:24 Active IV Insertion STAT Care 12/19/16 04:24 Active Pulse Oximetry (ED) STAT Care 12/19/16 04:24 Active CHEST 1 VIEW (PORTABLE) Stat Exams 12/19/16 04:24 Taken CBC W DIFF Stat Lab 12/19/16 04:38 Completed CMP Stat Lab 12/19/16 04:38 Completed Manual Differential NC Stat Lab 12/19/16 04:38 Completed PROTIME WITH INR Stat Lab 12/19/16 04:38 Completed TROPONIN Q3H Lab 12/19/16 04:38 Completed TROPONIN Q3H Lab 12/19/16 06:30 Completed TROPONIN Q3H Lab 12/19/16 10:30 Ordered TROPONIN Q3H Lab 12/19/16 13:30 Ordered TROPONIN Q3H Lab 12/19/16 16:30 Ordered Medication Summary Discontinued Medications Generic Name Dose Route Start Last Admin Trade Name Clayton PRN Reason Stop Dose Admin Hydromorphone HCl 1 mg 12/19/16 04:25 12/19/16 05:17 Hydromorphone 1 Mg/Ml Ampule IV 12/19/16 04:26 1 mg STAT ONE Administration Hydromorphone HCl Confirm 12/19/16 04:35 Hydromorphone 1 Mg/Ml Ampule Administered 12/19/16 04:36 Dose 1 mg .ROUTE .STK-MED ONE Lab/Rad Data: Laboratory Result Diagrams 12/19/16 04:38 12/19/16 04:38 Laboratory Results 12/19/16 12/19/16 12/19/16 Range/Units 06:30 04:38 04:38 WBC (4.0-10.5) K/mm3 RBC (4.1-5.6) M/mm3 Hgb (12.5-18.0) gm/dl Hct (42-50) % MCV (78-100) fl MCH (26-32) pg MCHC (32-36) g/dl RDW (11.5-14.0) % Plt Count (150-450) K/mm3 MPV (6-9.5) fl Segmented Neutrophils (36.-66.) % Lymphocytes (Manual) (24-44) % Monocytes (Manual) (0.0-12.0) % Eosinophils (Manual) (0.00-3.0) % Differential Comment Platelet Estimate (NORMAL) Hypochromasia Anisocytosis INR 1.16 (0.8-3.0) Sodium (136-145) mEq/L Potassium (3.5-5.1) mEq/L Chloride (98-107) mEq/L Carbon Dioxide (21-32) mEq/L Anion Gap (5-15) MEQ/L BUN (9-20) mg/dL Creatinine (0.55-1.30) mg/dl Estimated GFR ML/MIN Glucose (70-110) MG/DL Calcium (8.5-10.1) mg/dL Total Bilirubin (0.2-1.0) mg/dL AST (15-37) U/L ALT (12-78) U/L Alkaline Phosphatase (46-116) U/L Troponin I 0.096 H* 0.098 H* (0.000-0.056) ng/ml Serum Total Protein (6.4-8.2) gm/dL Albumin (3.4-5.0) g/dL 12/19/16 12/19/16 Range/Units 04:38 04:38 WBC 11.3 H (4.0-10.5) K/mm3 RBC 3.10 L (4.1-5.6) M/mm3 Hgb 8.9 L (12.5-18.0) gm/dl Hct 27.0 L (42-50) % MCV 87.1 (78-100) fl MCH 28.7 (26-32) pg MCHC 33.0 (32-36) g/dl RDW 13.5 (11.5-14.0) % Plt Count 302 (150-450) K/mm3 MPV 10.6 H (6-9.5) fl Segmented Neutrophils 72 H (36.-66.) % Lymphocytes (Manual) 16 L (24-44) % Monocytes (Manual) 9 (0.0-12.0) % Eosinophils (Manual) 3 (0.00-3.0) % Differential Comment ABNORMAL Platelet Estimate NORMAL (NORMAL) Hypochromasia 1+ Anisocytosis 1+ INR (0.8-3.0) Sodium 138 (136-145) mEq/L Potassium 4.6 (3.5-5.1) mEq/L Chloride 101 (98-107) mEq/L Carbon Dioxide 27.2 (21-32) mEq/L Anion Gap 14.6 (5-15) MEQ/L BUN 72 H (9-20) mg/dL Creatinine 3.04 H (0.55-1.30) mg/dl Estimated GFR 22 ML/MIN Glucose 214 H (70-110) MG/DL Calcium 8.5 (8.5-10.1) mg/dL Total Bilirubin 0.2 (0.2-1.0) mg/dL AST 21 (15-37) U/L ALT 16 (12-78) U/L Alkaline Phosphatase 82 (46-116) U/L Troponin I (0.000-0.056) ng/ml Serum Total Protein 6.4 (6.4-8.2) gm/dL Albumin 2.3 L (3.4-5.0) g/dL - Progress Progress Note: 12/19/16 07:33 Pt was improved by the time here. He had norco at [place]. He had dilaudid here. Stable. Troponin is similar to that at [place]. INR 1.[address] Palomo and will return to [facility] rehab, recheck INR Wednesday, keep warfarin same. Pt agrees and wants to go back. Counseled pt/family regarding: lab results, diagnosis, need for follow-up, rad results - Departure Time of Disposition: 07:35 Departure Disposition: Extended Care Facility Clinical Impression: chest pain post CABG, On warfarin therapy, Chronic renal insufficiency Condition: Stable Critical Care Time: No Referrals: MARSHALL COVINGTON [Primary Care Provider] - Instructions: Chest Pain Additional Instructions: Continue same warfarin. Recheck INR Wednesday- on warfarin. Same orders.
[2016-12-19] MEDS ORDERED: Hydromorphone 1 mg/ml Ampule ONE (04:35)
[2016-12-19 04:44] LABS: Mean Cell Volume 87.1 fl (78-100); Mean Corpuscular Hemoglobin 28.7 pg (26-32); Mean Platelet Volume 10.6 fl (6-9.5); Platelet Count 302 K/mm3 (150-450); Red Cell Distribution Width 13.5 % (11.5-14.0); White Blood Count 11.3 K/mm3 (4.0-10.5)
[2016-12-19 04:55] LABS: INR 1.16 (0.8-3.0); PROTIME 12.9 SECONDS (8.83-12.87)
[2016-12-19 05:03] LABS: ALBUMIN 2.3 g/dL (3.4-5.0); ANION GAP 14.6 MEQ/L (5-15); BILIRUBIN,TOTAL 0.2 mg/dL (0.2-1.0); Carbon Dioxide 27.2 mEq/L (21-32); Potassium 4.6 mEq/L (3.5-5.1); Total Protein 6.4 gm/dL (6.4-8.2)
[2016-12-19] MEDS: Hydromorphone 1 mg/ml Ampule IV ONE ×2 (05:12→05:17)
[2016-12-19 05:23] LABS: ANISOCYTOSIS 1+; Eosinophil 3 % (0.00-3.0); Hypochromia 1+; Platelet Estimate NORMAL (NORMAL); Total Cells Counted 100
[2016-12-19] MEDS ORDERED: NORCO 5/325 MG PO ONE (07:37)
[2016-12-19] MEDS ORDERED: NORCO 5/325 MG ONE (07:45)
[2016-12-19 07:50] VITALS: BP 153/76; PULSE 65; O2SAT 95
--- NOTE | 2016-12-19 08:49 | XRAY ---
Indication: Chest pain. Comparison: November 04, 2016. Portable chest rotated today with interval cardiothoracic surgery. No focal infiltrate, consolidation, or large effusion. Heart is borderline enlarged. Vascularity normal. Impression: Status post cardiothoracic surgery. Borderline cardiomegaly. Negative for acute pneumonic process or CHF.
== END 2016-12-19 08:20 ==
LOC: ED 04:11
DX: R07.89 Other chest pain (principal); Z95.1 Presence of aortocoronary bypass graft; Z79.01 Long term (current) use of anticoagulants; Z79.899 Other long term (current) drug therapy; N18.9 Chronic kidney disease, unspecified; E11.9 Type 2 diabetes mellitus without complications; Z79.84 Long term (current) use of oral hypoglycemic drugs; I50.9 Heart failure, unspecified; I10 Essential (primary) hypertension; Z86.711 Personal history of pulmonary embolism
CPT/HCPCS: 36415; 71010; 80053; 84484; 85025; 85610; 93005; 93041; 96374; 99284; 99285; J1170; A9270-GY

== ENCOUNTER 2017-11-30 15:37 | Emergency (ER) | payer OTHER ==
[2017-11-30] MEDS ORDERED: Adacel Vial IM ONE ×2 (16:45→16:54)
--- NOTE | 2017-11-30 17:12 | XRAY ---
Indication: First digit table saw injury. Comparison: None 3 views of the left hand demonstrates advanced first metacarpal multangular degenerative changes and moderate scattered vascular calcifications. No other bony, articular, or soft tissue abnormalities.
[2017-11-30 17:27] VITALS: O2SAT 98
--- NOTE | 2017-11-30 17:32 | ERPHSYRPT ---
- History of Present Illness Time Seen by Provider: 11/30/17 16:37 Source: patient Patient Subjective Stated Complaint: PT STATES HE CUT HIS LEFT THUMB ON THE LEFT HAND WITH A TABLE SAW. STATES THAT HE THINKS HIS TETNUS IS UP TO DATE. Triage Nursing Assessment: PT ALERT WARM AND DRY RESP EASY NON LABORED AVULSION NOTED TO LEFT 5TH FINGER BLEEDING CONTROLLED. Physician History: CC: left thumb injury Hx: 62 y/o patient of Dr [facility]. He got the left thumb tangled in a table saw LITHOSTRIPPER. Distal laceration. Unsure last tetanus vaccine. No other injuries. Pain is moderate. Occurred: just prior to arrival Extremities Pain Location: thumb: left Allergies/Adverse Reactions: Tetracyclines Allergy (Intermediate, Verified 12/19/16 04:28) erythromycin base Allergy (Mild, Verified 12/19/16 04:28) Home Medications: Acetaminophen 325 mg [Tylenol 325 mg] 325 mg PO Q4H PRN PRN 12/19/16 [ History] Amiodarone HCl 200 mg [Cordarone 200 MG] 200 mg PO DAILY 12/19/16 [History ] Atenolol 50 mg [Tenormin 50 mg] 50 mg PO DAILY 12/19/16 [History] Atorvastatin Calcium 40 mg PO HS 12/19/16 [History] Calcitriol 0.25 mcg PO UD 12/19/16 [History] Clopidogrel Bisulfate 75 mg [PLAVIX 75 MG Tablet] 75 mg PO DAILY 12/19/16 [History] Docusate Sodium 100 mg [Colace 100 MG] 100 mg PO BID 12/19/16 [History] Famotidine 20 mg [Pepcid 20 MG] 20 mg PO DAILY 12/19/16 [History] Fexofenadine HCl 180 mg PO DAILY 12/19/16 [History] Glipizide 5 mg [Glucotrol 5 MG] 5 mg PO DAILY 12/19/16 [History] Glucagon 1 mg [GlucaGen 1 MG] 1 mg IM UD 12/19/16 [History] Glucosam/Chondr/Collagn/Hyalur [Glucosamine & Chondroitin Cap] 1 each PO BID [History] Hydrocodone Bit/Acetaminophen [[place] 5/325Mg] 1 each PO Q4HPRN PRN 12/19/16 [ History] Insulin Glargine,Hum.rec.anlog [Toucortez Solostar] 130 unit SQ DAILY 12/19/16 [ History] Ipratropium Holmen 0.5 mg [Atrovent 0.5MG NEBULE] 0.5 mg IH BID 12/19/16 [ History] Isosorbide Mononitrate [Isosorbide Mononitrate ER] 30 mg PO DAILY 12/19/16 [ History] Metoprolol Tartrate 50 mg [Lopressor 50 MG] 50 mg PO BID 12/19/16 [History ] Multivit-Min/FA/Lycopen/Lutein [Men 50 Plus Multivitamin Tab] 1 each PO DAILY [History] Omeprazole 20 mg PO DAILY 12/19/16 [History] Patiromer Calcium Sorbitex [Veltassa] 8.4 gm PO DAILY 12/19/16 [History] Sodium Bicarbonate 325 mg PO BID 12/19/16 [History] Torsemide 20 mg PO BID 12/19/16 [History] Warfarin Sodium 7.5 mg PO DAILY 12/19/16 [History] Hx Tetanus, Diphtheria Vaccination/Date Given: No (STATES HE THINKS SO) Hx Influenza Vaccination/Date Given: Yes Hx Pneumococcal Vaccination/Date Given: No Immunizations Up to Date: No - Review of Systems Constitutional: No Symptoms Musculoskeletal: Injury (left thumb), No Back Pain, No Neck Pain Neurological: No Focal Weakness, No Parasthesia - Past Medical History Pertinent Past Medical History: Yes Neurological History: No Pertinent History ENT History: No Pertinent History Cardiac History: Congestive Heart Failure, Hypertension Respiratory History: Asthma, Bronchitis, CHF, Pneumonia, Pulmonary Embolism Endocrine Medical History: No Pertinent History, Diabetes Type II Musculoskeletal History: Arthritis GI Medical History: Other History: No Pertinent History Psycho-Social History: No Pertinent History Male Reproductive Disorders: No Pertinent History Other Medical History: KIDNEY FUNCTION 23% (11/04/2016) - Past Surgical History Past Surgical History: Yes Neuro Surgical History: No Pertinent History Cardiac: Cardiac Catheterization Respiratory: No Pertinent History Gastrointestinal: No Pertinent History Musculoskeletal: No Pertinent History Male Surgical History: No Pertinent History Other Surgical History: DENTAL - Social History Smoking Status: Never smoker How long have you smoked: 1 year Exposure to second hand smoke: No Drug Use: none Patient Lives Alone: No Significant Family History: heart disease, hypertension, kidney/renal disease - Nursing Vital Signs Nursing Vital Signs: Initial Vital Signs Temperature 98.5 F 11/30/17 15:53 Pulse Rate 70 11/30/17 15:53 Respiratory Rate 18 11/30/17 15:53 Blood Pressure 152/82 11/30/17 15:53 O2 Sat by Pulse Oximetry 97 11/30/17 15:53 - Physical Exam General Appearance: alert Eyes, Ears, Nose, Throat Exam: moist mucous membranes Neck Exam: supple Cardiovascular/Respiratory Exam: normal breath sounds, regular rate/rhythm Neuro/Tendon Exam: normal sensation, normal motor functions Mental Status Exam: alert, oriented x 3, cooperative Skin Exam: warm, dry SpO2 Interpretation: normal SpO2: 98 Oxygen Delivery: Room Air Comments: left thumb distal has avulsion of tuft skin, greater than 1cm squared. ROM intact. Sensation intact. There is small avulsion/flap. - Course Nursing assessment & vital signs reviewed: Yes - Radiology Exams left hand X-ray Interpretation: Teleradiologist Report, No Fracture Ordered Tests: Active Orders 24 hr Category Date Time Status Wound Care STAT Care 11/30/17 16:44 Active HAND (MINIMUM 3 VIEWS) Stat Exams 11/30/17 16:44 Completed Medication Summary Discontinued Medications Generic Name Dose Route Start Last Admin Trade Name Freq PRN Reason Stop Dose Admin Diphtheria/Tetanus/Acell Pertussis 0.5 ml 11/30/17 16:45 11/30/17 16:57 Adacel Vial IM 11/30/17 16:46 0.5 ml .ONCE ONE Administration Diphtheria/Tetanus/Acell Pertussis Confirm 11/30/17 16:54 Adacel Vial Administered 11/30/17 16:55 Dose 0.5 ml IM .STK-MED ONE - Progress Progress Note: 11/30/17 17:30 Wound cleansed. Surgicel dressing. He requests [facility]. Appt for 7:45 AM tomorrow. Counseled pt/family regarding: diagnosis, need for follow-up, rad results - Departure Time of Disposition: 17:30 Departure Disposition: Home Clinical Impression: Avulsion of skin of left thumb Qualifiers: Encounter type: initial encounter Qualified Code(s): S61.002A - Unspecified open wound of left thumb without damage to nail, initial encounter Condition: Stable Critical Care Time: No Referrals: MARSHALL COVINGTON [Primary Care Provider] - Instructions: Wound Care (DC) Additional Instructions: See [facility] tomorrow at 7:45AM. Elevate hand. Rx norco for pain. Prescriptions: Hydrocodone Bit/Acetaminophen [[place] 5-325 Tablet] 1 each PO Q6H PRN PRN #10 tablet MDD 4 PRN Reason: Pain
[2017-11-30 18:13] LABS: INR 1.96 (0.8-3.0)
[2017-11-30 18:49] VITALS: BP 192/58; PULSE 68
== END 2017-11-30 18:49 | disposition home or self-care (01) ==
LOC: ED 15:37
DX: S61.012A Laceration without foreign body of left thumb without damage to nail, initial encounter (principal); Z79.01 Long term (current) use of anticoagulants; Z79.899 Other long term (current) drug therapy; W31.2XXA Contact with powered woodworking and forming machines, initial encounter
CPT/HCPCS: 36415; 73130; 85610; 90471; 90715; 99284